=== PATIENT | male | born 1990 | race African-American/Black ===

== ENCOUNTER 2017-08-30 08:07 | Emergency (ER) | payer OTHER ==
[2017-08-30] MEDS ORDERED: KETOROLAC 30 MG/ML VIAL (J1885) IM (09:15)
[2017-08-30] MEDS ORDERED: PERCOCET 5MG/325MG TAB PO (09:15)
== END 2017-08-30 09:14 | disposition home or self-care (01) ==
LOC: M ED 08:07
DX: R51 Headache (principal); V49.9XXA Car occupant (driver) (passenger) injured in unspecified traffic accident, initial encounter; Y92.9 Unspecified place or not applicable; Y93.9 Activity, unspecified
CPT/HCPCS: 70450